=== PATIENT | male | born 1985 | race Hispanic/Latino ===

== ENCOUNTER 2023-08-01 09:48 | Emergency (ER) | payer BC ==
[2023-08-01] MEDS ORDERED: Triamcinolone 40 MG/ML VIAL ONE (11:31)
[2023-08-01] MEDS ORDERED: Lidocaine 1% PF 5 ML VIAL ONE (11:32)
== END 2023-08-01 12:00 | disposition home or self-care (01) ==
LOC: MADERS 09:48
DX: M17.12 Unilateral primary osteoarthritis, left knee (principal)
CPT/HCPCS: 20610; 87070; 87205; 89060; J3301